=== PATIENT | male | born 1985 | race American Indian/Alaskan Native ===

== ENCOUNTER 2020-10-01 08:32 | Inpatient (IN) | payer SELFPAY ==
[2020-10-01] MEDS ORDERED: hydrALAZINE 20 MG/1 ML INJ IV ONE ×2 (08:56→23:45)
[2020-10-01] MEDS ORDERED: LORazepam 1 MG TAB PO ONE (08:56)
[2020-10-01] MEDS ORDERED: FUROSEMIDE 40 MG/4 ML INJ IV ONE (08:56)
[2020-10-01] MEDS ORDERED: NITROGLYCERIN 2% OINT 1 GM TP ONE (08:57)
--- NOTE | 2020-10-01 09:30 | XRay Report ---
XR chest 1V ap INDICATION / CLINICAL INFORMATION: resp distress. COMPARISON: None available. FINDINGS: SUPPORT DEVICES: None. HEART /PULMONARY VASCULATURE: Cardiac silhouette is enlarged with prominence of the pulmonary vascula ture. LUNGS / PLEURA: Patchy airspace opacity within the right mid and lower lung. No pleural effusion or p neumothorax. ADDITIONAL FINDINGS: No significant additional findings. IMPRESSION: Right mid and lower lung airspace disease, suspicious for pneumonia. This could also reflect asymmetr ic pulmonary edema. Signer Name: Sourav Sotelo MD Signed: 10/01/2020 9:26 AM Workstation Name: [id number]
[2020-10-01 09:40] LABS: Hematocrit 34.7 % (35.5-45.6); Hemoglobin 11.8 gm/dl (11.8-15.2); Mean Corpuscular HGB Conc 34 % (32-34); Mean Corpuscular Volume 87 fl (84-94); Platelet Count 347 K/mm3 (140-440); Red Blood Count 4.01 M/mm3 (3.65-5.03); Red Cell Distribution Width 15.1 % (13.2-15.2)
[2020-10-01] MEDS ORDERED: ONDANSETRON 4 MG/2 ML INJ ONE (09:49)
[2020-10-01] MEDS ORDERED: ONDANSETRON 4 MG/2 ML INJ IV ONE (09:53)
[2020-10-01] MEDS ORDERED: INSULIN REGULAR, HUMAN 100 UNITS/1 ML ONE (10:00)
[2020-10-01] MEDS ORDERED: NITROGLYCERIN DRIP 50 MG/250 ML BOTTLE IV SCH (10:00)
[2020-10-01] MEDS ORDERED: LORazepam 2 MG/ML VIAL IV ONE ×2 (10:04→17:53)
[2020-10-01] MEDS ORDERED: ALBUTEROL 2.5 MG/3 ML NEBU IH ONE (10:05)
[2020-10-01] MEDS ORDERED: SODIUM BICARB 8.4% 50 MEQ/50 ML SYRINGE IV ONE (10:05)
[2020-10-01] MEDS ORDERED: DEXTROSE 50% IN WATER (25GM) 50 ML SYRINGE IV ONE (10:05)
[2020-10-01] MEDS ORDERED: INSULIN REGULAR, HUMAN 100 UNIT/ML 3ML VIAL IV ONE (10:05)
[2020-10-01] MEDS ORDERED: HYDROmorphone 1 MG/1 ML INJ IV ONE (10:37)
[2020-10-01 10:40] LABS: Basophils % (Manual) 0 % (0.0-1.8); Monocytes % (Manual) 0 % (0.0-7.3); Total Cells Counted 100
[2020-10-01 10:42] LABS: Platelet Estimate Consistent w Auto; Schistocytes Few
--- NOTE | 2020-10-01 10:46 | Emergency Department Report ---
ED General Adult HPI - General Chief complaint: Dyspnea/Respdistress Stated complaint: DIALYSIS Time Seen by Provider: 10/01/20 08:50 Source: EMS Mode of arrival: Ambulatory Limitations: No Limitations - History of Present Illness Initial comments: Patient is a 35-year-old F [place] male with past medical history of hypertension end-stage renal disease who missed dialysis due to the holiday schedule. Patient's last dialysis was 4 days ago. Patient states over the last 24 hours she has developed shortness of breath nausea. Patient states that is very uncomfortable with his breathing. He denies any fevers chills body aches or diarrhea at this time. Severity scale (0 -10): 2 - Related Data Allergies Allergy/AdvReac Type Severity Reaction Status Date / Time No Known Allergies Allergy Unverified 10/01/20 09:57 ED Review of Systems ROS: Stated complaint: DIALYSIS Other details as noted in HPI Comment: All other systems reviewed and negative ED Past Medical Hx - Past Medical History Previous Medical History?: Yes Hx Hypertension: Yes Hx Renal Disease: Yes - Surgical History Past Surgical History?: Yes Additional Surgical History: shunt left arm - Social History Smoking Status: Never Smoker ED Physical Exam - General Limitations: No Limitations General appearance: alert, in no apparent distress - Head Head exam: Present: atraumatic, normocephalic - Eye Eye exam: Present: normal appearance, PERRL, EOMI - ENT ENT exam: Present: mucous membranes moist - Neck Neck exam: Present: normal inspection - Respiratory Respiratory exam: Present: respiratory distress, wheezes, rhonchi. Absent: normal lung sounds bilaterally - Cardiovascular Cardiovascular Exam: Present: regular rate, normal rhythm, normal heart sounds. Absent: systolic murmur, diastolic murmur, rubs, gallop - GI/Abdominal GI/Abdominal exam: Present: soft, normal bowel sounds. Absent: distended, tenderness, guarding, rebound - Rectal Rectal exam: Present: deferred - Extremities Exam Extremities exam: Present: normal inspection - Back Exam Back exam: Present: normal inspection - Neurological Exam Neurological exam: Present: alert, oriented X3 - Psychiatric Psychiatric exam: Present: normal affect, normal mood - Skin Skin exam: Present: warm, dry, intact, normal color. Absent: rash ED Course Vital Signs 10/01/20 10/01/20 10/01/20 08:49 10:04 10:07 Temperature 98.1 F Pulse Rate 86 98 H Pulse Rate [ Bilateral] Respiratory 29 H 40 H 18 Rate Respiratory Rate [Bilateral ] Blood Pressure 225/129 225/129 Blood Pressure 225/129 [Right] O2 Sat by Pulse 95 94 96 Oximetry 10/01/20 10:21 Temperature Pulse Rate Pulse Rate [ 94 H Bilateral] Respiratory Rate Respiratory 28 H Rate [Bilateral ] Blood Pressure Blood Pressure [Right] O2 Sat by Pulse Oximetry ED Medical Decision Making - Lab Data Result diagrams: 10/01/20 09:01 10/01/20 09:01 Lab Results 10/01/20 10/01/20 Range/Units 09:01 09:01 WBC 13.5 H (4.5-11.0) K/mm3 RBC 4.01 (3.65-5.03) M/mm3 Hgb 11.8 (11.8-15.2) gm/dl Hct 34.7 L (35.5-45.6) % MCV 87 (84-94) fl MCH 30 (28-32) pg MCHC 34 (32-34) % RDW 15.1 (13.2-15.2) % Plt Count 347 (140-440) K/mm3 Add Manual Diff Complete Total Counted 100 Seg Neutrophils % Ultrasound Coordinator Seg Neuts % (Manual) 93.0 H (40.0-70.0) % Band Neutrophils % 0 % Lymphocytes % (Manual) 6.0 L (13.4-35.0) % Reactive Lymphs % (Man) 0 % Monocytes % (Manual) 0 (0.0-7.3) % Eosinophils % (Manual) 1.0 (0.0-4.3) % Basophils % (Manual) 0 (0.0-1.8) % Metamyelocytes % 0 % Myelocytes % 0 % Promyelocytes % 0 % Blast Cells % 0 % Nucleated RBC % Not Reportable Seg Neutrophils # Man 12.6 H (1.8-7.7) K/mm3 Band Neutrophils # 0.0 K/mm3 Lymphocytes # (Manual) 0.8 L (1.2-5.4) K/mm3 Abs React Lymphs (Man) 0.0 K/mm3 Monocytes # (Manual) 0.0 (0.0-0.8) K/mm3 Eosinophils # (Manual) 0.1 (0.0-0.4) K/mm3 Basophils # (Manual) 0.0 (0.0-0.1) K/mm3 Metamyelocytes # 0.0 K/mm3 Myelocytes # 0.0 K/mm3 Promyelocytes # 0.0 K/mm3 Blast Cells # 0.0 K/mm3 WBC Morphology Not Reportable Hypersegmented Neuts Not Reportable Hyposegmented Neuts Not Reportable Hypogranular Neuts Not Reportable Smudge Cells Not Reportable Toxic Granulation Not Reportable Toxic Vacuolation Not Reportable Dohle Bodies Not Reportable Pelger-Huet Anomaly Not Reportable Jayesh Rods Not Reportable Platelet Estimate Consistent w auto Clumped Platelets Not Reportable Plt Clumps, EDTA Not Reportable Large Platelets Not Reportable Giant Platelets Not Reportable Platelet Satelliting Not Reportable Plt Morphology Comment Not Reportable RBC Morphology Not Reportable Dimorphic RBCs Not Reportable Polychromasia Not Reportable Hypochromasia Not Reportable Poikilocytosis Not Reportable Anisocytosis Not Reportable Microcytosis Not Reportable Macrocytosis Not Reportable Spherocytes Not Reportable Pappenheimer Bodies Not Reportable Sickle Cells Not Reportable Target Cells Not Reportable Tear Drop Cells Not Reportable Ovalocytes Not Reportable Helmet Cells Not Reportable [place] Bodies Not Reportable [place] Rings Not Reportable [place] Cells Not Reportable Bite Cells Not Reportable Crenated Cell Not Reportable Elliptocytes Few Acanthocytes (Spur) Not Reportable Rouleaux Not Reportable Hemoglobin C Crystals Not Reportable Schistocytes Few Malaria parasites Not Reportable Giovanni Bodies Not Reportable Hem Pathologist Commnt No Sodium 137 (137-145) mmol/L Potassium 5.9 H (3.6-5.0) mmol/L Chloride 94.3 L (98-107) mmol/L Carbon Dioxide 18 L (22-30) mmol/L Anion Gap 31 mmol/L BUN 126 H (9-20) mg/dL Creatinine 22.1 H (0.8-1.3) mg/dL Estimated GFR 2 ml/min BUN/Creatinine Ratio 6 % Glucose 90 (75-100) mg/dL Calcium 9.0 (8.4-10.2) mg/dL - Radiology Data CXR shows pulmonary edema bilateral lower lobes. - Medical Decision Making Patient is a 35-year-old -[place] male with a past medical history of missed dialysis who is presenting with respiratory distress. Patient while sitting completely still was able to maintain his O2 saturation in the mid 90s however with any movement patient would desaturate. Patient's lowest O2 sat was 80%. Patient was placed on BiPAP. Patient was given labetalol for blood pressure control started on nitroglycerin drip for preload reduction. Nephrology has been consulted and and will dialyze the patient. Patient was given a cocktail of D50 insulin and albuterol and sodium bicarb for his elevated potassium. Patient to be admitted to the hospitalist service to the ICU. Critical Care Time: Yes (30) Critical care attestation.: If time is entered above; I have spent that time in minutes in the direct care of this critically ill patient, excluding procedure time. ED Disposition Clinical Impression: Respiratory distress, Pulmonary edema, Hyperkalemia, Missed dialysis, Hypoxia Disposition: OP ADMIT IP TO THIS HOSP Is pt being admited?: Yes Does the pt Need Aspirin: No Condition: Stable Instructions: Pulmonary Edema (ED) Time of Disposition: 10:50
--- NOTE | 2020-10-01 11:14 | History and Physical Report ---
History of Present Illness Chief complaint: I need dialysis History of present illness: 35 YO Male with ESRD on HD(M,W,F) and has missed multiple dialysis sessions, HTN presents to ED for evaluation. Patient is lying in bed with noninvasive positive pressure ventilation in place at the time my evaluation and provide l imited history. Patient reports missing multiple dialysis sessions and is unable to speak in complete sentences due to shortness of breath. EMS was notified due to the aforementioned symptoms and upon arrival the patient was found to be in respiratory distress and placed on submental oxygen and tr ansported to [facility] for further care and evaluation of the aforementioned symptoms. The patient was seen and evaluated in the emergency department. All lab and imaging studies reviewed. The patient was found to have end-stage renal disease in need of urgent dialysis. Nephrology team consulted in ED for urgent dialysis. Patient also found to have a pulse oximetry of 86% on room air which is consistent with acute hypoxemic respiratory failure, systemic febrile response syndrome, as well as most malignant hypertension. Patient found to have a blood pressure of 225/129 and was initiated on nitro drip with improvement in blood pressure. Patient admitted to IMCU due to increased risk of multiple organ system failure. Patient is confused and lethargic at the time of my evaluation but has a positive gag reflex and is able to protect his airway without difficulty. No prior admission for review. No medication listed at time of admission for reconciliation. Past History Past Medical History: ESRD, hypertension, other (See HPI) Past Surgical History: Other (Dialysis access) Social history: single. denies: smoking, alcohol abuse, prescription drug abuse Family history: hypertension Medications and Allergies Allergies Allergy/AdvReac Type Severity Reaction Status Date / Time No Known Allergies Allergy Unverified 10/01/20 09:57 Active Meds: Active Medications Nitroglycerin/Dextrose (Tridil Drip 50mg/250ml) 50 mg in 250 mls @ 3 mls/hr IV TITR REBA; Protocol Last Titration: 10/01/20 11:10 Dose: 3 mcg/min, 0.9 mls/hr Documented by: Review of Systems ROS unobtainable: due to mental status Exam - Constitutional Vitals: Temp Pulse Resp BP Pulse Ox 98.1 F 86 18 142/100 96 10/01/20 08:49 10/01/20 10:48 10/01/20 10:47 10/01/20 10:48 10/01/20 10:07 General appearance: Present: mild distress - EENT Eyes: Present: PERRL ENT: hearing intact, clear oral mucosa - Neck Neck: Present: supple, normal ROM - Respiratory Respiratory effort: normal Respiratory: bilateral: diminished, rhonchi - Cardiovascular Heart Sounds: Present: S1 & S2. Absent: rub, click - Extremities Extremities: pulses symmetrical Extremity abnormal: edema Peripheral Pulses: within normal limits - Abdominal General gastrointestinal: Present: soft, non-tender, non-distended, normal bowel sounds Male genitourinary: Present: normal - Integumentary Integumentary: Present: clear, warm, dry - Musculoskeletal Musculoskeletal: generalized weakness - Psychiatric Psychiatric: appropriate mood/affect, no intact judgment & insight, no memory intact - Neurologic Neurologic: CNII-XII intact, moves all extremities, no gait normal Results - Labs CBC & Chem 7: 10/01/20 09:01 10/01/20 09:01 Labs: Abnormal lab results 10/01/20 10/01/20 Range/Units 09:01 09:01 WBC 13.5 H (4.5-11.0) K/mm3 Hct 34.7 L (35.5-45.6) % Seg Neuts % (Manual) 93.0 H (40.0-70.0) % Lymphocytes % (Manual) 6.0 L (13.4-35.0) % Seg Neutrophils # Man 12.6 H (1.8-7.7) K/mm3 Lymphocytes # (Manual) 0.8 L (1.2-5.4) K/mm3 Potassium 5.9 H (3.6-5.0) mmol/L Chloride 94.3 L (98-107) mmol/L Carbon Dioxide 18 L (22-30) mmol/L BUN 126 H (9-20) mg/dL Creatinine 22.1 H (0.8-1.3) mg/dL Assessment and Plan - Patient Problems (1) Acute hypoxemic respiratory failure Current Visit: Yes Status: Acute Plan to address problem: Supplemental oxygen, pulse oximetry, nebulizer therapy, noninvasive positive pressure ventilation, ABG, repeat ABG after 1 hour of noninvasive positive pressure ventilation, pulmonary toilet. (2) End stage renal disease Current Visit: Yes Status: Acute Plan to address problem: Nephrology team consulted in ED for urgent dialysis, strict I's/O, monitor urine output every shift, avoid nephrotoxic agents. (3) Hypertensive emergency Current Visit: Yes Status: Acute Plan to address problem: Blood pressure control, nitro drip patient subsequently discontinued and ini tiated on Cardene drip, urine drug screen pending., resume prehospital antihypertensive therapy, monitor blood pressure every shift. Urgent dialysis. (4) Systemic inflammatory response syndrome Current Visit: Yes Status: Acute Plan to address problem: CBC, CMP, chest x-ray, urinalysis, empiric IV antibiotic therapy, repeat CBC in a.m. (5) DVT prophylaxis Current Visit: Yes Status: Acute Plan to address problem: SCD to bilateral lower extremities while in bed, prophylactic anticoagulation
[2020-10-01] MEDS ORDERED: SODIUM CHLORIDE 0.9% 100 ML IV PRN (12:00)
[2020-10-01 12:34] LABS: Hepatitis B Surface Antigen Non-Reactive (Negative); Hepatitis C Virus Antibody Non-Reactive (NonReactive)
--- NOTE | 2020-10-01 15:28 | Progress Note ---
Subjective Interval history: Thank you for the consultation Patient was evaluated today, 11 a.m. My assessment and plan are as follows #End-stage renal disease: Patient is currently on maintenance hemodialysis and he is any emergent need for renal placement therapy due to respiratory failure currently on BiPAP discussed with dialysis nurse for stat hemodialysis, targeting up to 3 L of fluid as tolerated #Respiratory failure resulting mostly from volume overload, Patient is unable to provide much of history as he is markedly dyspneic even on BiPAP #Electrolyte and volume: To monitor and follow Appears to be volume overloaded patient admits, being not careful with his fluid intake during the holidays #Dialysis Access: Working well no issues per patient He does have a functioning access in his left arm #Anemia in end-stage renal disease to monitor hemoglobin and hematocrit periodically erythropoietin as needed, #of blood pressure remains elevated post dialysis he can be considered for Cardene drip in the meantime he can receive when necessary medications #Bone mineral disorder and secondary hyperparathyroidism: Monitor phosphorus and PTH level periodically, #Diet and nutrition: Patient advised to maintain 1200 cc fluid restriction needs to be on protein: 1.5 g/kg body weight daily, supplement should be considered Briefly discussed about compliance restricting fluid #Overall prognosis remains guarded possibly he may get intubated, due to severity of renal failure I have ordered for stat hemodialysis and discussed with dialysis nurse directly to dialyze him right away If there are any further question in regard to this patient's renal care please call at [phone] Author: Gadiel Sharpe M.D. [facility], [address] [place] [address] Tel; [phone] Source of information: From emergency room physician current chart patient unable to provide any history History of present illness 35-year-old male who was admitted here with shortness of breath after missing dialysis, he was last dialyzed approximate he 4 days ago. He is presenting here with severe shortness of breath currently on BiPAP, markedly accelerated hypertension to 25/129 hemoglobin was 11.8, white cell count 13.5 platelet count 3 and 47,000. Potassium was 5.9 BUN 126 creatinine was 22.1 Past medical history: ESRD Hypertension Anemia in end-stage renal disease Secondary hyperparathyroidism Current allergies: Reviewed from the current chart Social history: Reviewed from the current chart Family history: Reviewed from the current chart Review of system: Unable to obtain due to respiratory failure patient markedly dyspneic currently on BiPAP Physical examination Vitals: Reviewed General: Mild to moderate respiratory distress HEENT: Oral mucosa moist no pallor or icterus Neck: Supple without any JVD thyromegaly or nodular mass Chest: Bilateral crackles Heart: Regular rate and rhythm S1-S2 heard no S3-S4 Abdomen: Soft nontender, bowel sounds present no renal bruit no suprapubic masses no CVA tenderness noted Extremity: 1+ edema has functioning fistula Endocrine: Thyroid not enlarged Psychiatric: No agitation and aggression noted Musculoskeletal: No joint effusion noted Labs and x-rays: Reviewed from this admission Objective - Vital Signs Vital signs: Vital Signs - 12hr 10/01/20 10/01/20 10/01/20 08:45 08:49 09:00 Temperature 98.1 F Pulse Rate 88 86 87 Pulse Rate [ Bilateral] Respiratory 27 H 29 H 44 H Rate Respiratory Rate [Bilateral ] Blood Pressure 225/129 225/129 Blood Pressure 225/129 [Right] O2 Sat by Pulse 96 95 95 Oximetry O2 Sat by Pulse Oximetry [ Bilateral] 10/01/20 10/01/20 10/01/20 09:16 09:30 09:46 Temperature Pulse Rate 87 89 90 Pulse Rate [ Bilateral] Respiratory 28 H 28 H 27 H Rate Respiratory Rate [Bilateral ] Blood Pressure 225/129 225/129 225/129 Blood Pressure [Right] O2 Sat by Pulse 96 94 91 Oximetry O2 Sat by Pulse Oximetry [ Bilateral] 10/01/20 10/01/20 10/01/20 10:00 10:04 10:07 Temperature Pulse Rate 87 98 H Pulse Rate [ Bilateral] Respiratory 38 H 40 H 18 Rate Respiratory Rate [Bilateral ] Blood Pressure 217/121 225/129 Blood Pressure [Right] O2 Sat by Pulse 97 94 96 Oximetry O2 Sat by Pulse Oximetry [ Bilateral] 10/01/20 10/01/20 10/01/20 10:16 10:21 10:30 Temperature Pulse Rate 92 H 93 H Pulse Rate [ 94 H Bilateral] Respiratory 42 H 49 H Rate Respiratory 28 H Rate [Bilateral ] Blood Pressure 228/134 227/155 Blood Pressure [Right] O2 Sat by Pulse 95 97 Oximetry O2 Sat by Pulse Oximetry [ Bilateral] 10/01/20 10/01/20 10/01/20 10:46 10:47 10:48 Temperature Pulse Rate 86 Pulse Rate [ Bilateral] Respiratory 49 H 18 Rate Respiratory Rate [Bilateral ] Blood Pressure 223/150 142/100 Blood Pressure [Right] O2 Sat by Pulse 99 Oximetry O2 Sat by Pulse Oximetry [ Bilateral] 10/01/20 10/01/20 10/01/20 11:00 11:16 11:25 Temperature 98.1 F Pulse Rate 85 80 83 Pulse Rate [ Bilateral] Respiratory 42 H 30 H 30 H Rate Respiratory Rate [Bilateral ] Blood Pressure 239/143 206/122 206/122 Blood Pressure [Right] O2 Sat by Pulse 97 98 Oximetry O2 Sat by Pulse 100 Oximetry [ Bilateral] 10/01/20 10/01/20 10/01/20 11:30 11:45 12:00 Temperature Pulse Rate 82 76 75 Pulse Rate [ Bilateral] Respiratory 39 H 33 H 30 H Rate Respiratory Rate [Bilateral ] Blood Pressure 205/130 198/132 198/132 Blood Pressure [Right] O2 Sat by Pulse 96 94 94 Oximetry O2 Sat by Pulse Oximetry [ Bilateral] 10/01/20 10/01/20 10/01/20 12:15 12:30 12:45 Temperature Pulse Rate 74 76 75 Pulse Rate [ Bilateral] Respiratory 33 H 33 H 34 H Rate Respiratory Rate [Bilateral ] Blood Pressure 191/119 191/119 196/123 Blood Pressure [Right] O2 Sat by Pulse 93 93 94 Oximetry O2 Sat by Pulse Oximetry [ Bilateral] 10/01/20 10/01/20 10/01/20 13:00 13:15 13:30 Temperature Pulse Rate 76 74 74 Pulse Rate [ Bilateral] Respiratory 35 H 35 H 37 H Rate Respiratory Rate [Bilateral ] Blood Pressure 202/126 214/128 214/128 Blood Pressure [Right] O2 Sat by Pulse 95 95 97 Oximetry O2 Sat by Pulse Oximetry [ Bilateral] 10/01/20 10/01/20 10/01/20 13:45 14:00 14:15 Temperature Pulse Rate 75 80 79 Pulse Rate [ Bilateral] Respiratory 36 H 40 H 35 H Rate Respiratory Rate [Bilateral ] Blood Pressure 220/135 220/135 220/149 Blood Pressure [Right] O2 Sat by Pulse 95 100 98 Oximetry O2 Sat by Pulse Oximetry [ Bilateral] 10/01/20 10/01/20 10/01/20 14:30 14:45 15:00 Temperature Pulse Rate 70 71 68 Pulse Rate [ Bilateral] Respiratory Rate Respiratory Rate [Bilateral ] Blood Pressure 223/136 230/142 238/147 Blood Pressure [Right] O2 Sat by Pulse Oximetry O2 Sat by Pulse Oximetry [ Bilateral] - Lab 10/01/20 09:01 10/01/20 09:01 Most recent lab results Calcium 9.0 mg/dL (8.4-10.2) 10/01/20 09:01 Medications & Allergies - Medications Allergies/Adverse Reactions: Allergies No Known Allergies Allergy (Unverified 10/01/20 09:57) Active Medications: Generic Name Dose Route Start Last Admin Trade Name Freq PRN Reason Stop Dose Admin Nitroglycerin/Dextrose 50 mg in 250 mls @ 3 mls/hr 10/01/20 10:00 10/01/20 11:10 Tridil Drip 50mg/250ml IV 3 mcg/min TITR REBA 0.9 mls/hr Titration Protocol 10 MCG/MIN Sodium Chloride 100 mls @ 999 mls/hr 10/01/20 12:00 Nacl 0.9% IV LUCIE PRN Hypotension
[2020-10-01 15:47] LABS: ABG Base Excess 0.7 mmol/L (-2.0-3.0); ABG HCO3 25.9 mmol/L (20.0-26.0); ABG Methemoglobin 0.5 % (0.0-1.5); ABG PCO2 43.4 mm Hg; ABG PH 7.393 pH Units (7.350-7.450); ABG PO2 110.7 mm Hg (80.0-90.0)
[2020-10-01] MEDS ORDERED: niCARdipine DRIP 40 MG/200 ML BAG ONE (16:52)
[2020-10-01] MEDS ORDERED: niCARdipine DRIP 40 MG/200 ML BAG IV ONE (17:00)
[2020-10-01 17:03] LABS: Calcium 9.5 mg/dL (8.4-10.2)
[2020-10-01] MEDS ORDERED: HYDROmorphone 1 MG/1 ML INJ ONE (17:18)
[2020-10-01] MEDS ORDERED: LORazepam 2 MG/ML VIAL ONE (17:52)
[2020-10-01] MEDS ORDERED: HEPARIN 5,000 UNIT/1 ML VIAL SUB-Q SCH (22:00)
[2020-10-01] MEDS ORDERED: cloNIDine 0.1 MG TAB PO ONE (22:00)
[2020-10-01 22:23] LABS: Benzodiazepines Screen,Urine Negative; Cocaine Screen,Urine Negative; Methadone Screen,Urine Negative; Opiate Screen,Urine Negative
[2020-10-01 22:35] LABS: Amphetamine Screen,Urine Positive; Cannabinoid Screen,Urine Positive
[2020-10-01] MEDS: niCARdipine 50 MG in SODIUM CHLORIDE 0.9% 250ML 230 ML IV SCH (23:18)
[2020-10-01] MEDS ORDERED: ZOLPIDEM 5 MG TAB PO ONE (23:45)
[2020-10-02] MEDS: niCARdipine 50 MG in SODIUM CHLORIDE 0.9% 250ML 230 ML IV SCH ×3 (02:57→08:05)
[2020-10-02] MEDS ORDERED: cloNIDine 0.1 MG TAB ONE (03:23)
--- NOTE | 2020-10-02 09:37 | Progress Note ---
<SORAYA MARTÍNEZ - Last Filed: 10/02/20 14:33> Assessment and Plan - Patient Problems (1) Acute hypoxemic respiratory failure-has resolved Current Visit: Yes Status: Acute Plan to address problem: Seen on room air (2) End stage renal disease Current Visit: Yes Status: Acute Plan to address problem: Nephrology following Continue HD per renal recommendation Avoid nephrotoxic agent. (3) Hypertensive emergency Current Visit: Yes Status: Acute Plan to address problem: Monitor Blood pressure Started home bp med-his blood pressure normal Discontinued Cardene drip, urine drug screen positive for amphetamines and marijuana Discussed illicit drug use cessation (4) Systemic inflammatory response syndrome Current Visit: Yes Status: Acute Plan to address problem: leucocytosis -elevated WBC Continue empiric antibiotic Am lab CBC, CMP, chest x-ray, urinalysis (5) DVT prophylaxis Current Visit: Yes Status: Acute Plan to address problem: SCD to bilateral lower extremities while in bed, prophylactic anticoagulation - Patient Problems (3) Pulmonary edema Status: Acute Plan to address problem: Most likely 2/2 fluid overload/PNA infection Continue Hemodialysis per renal Patient seen on room air-he said he is feeling better Subjective Date of service: 10/02/20 Principal diagnosis: Fluid overload/acute respiratory failure with hypoxia/ESRD Interval history: Patient seen at bedside-on room air. Patient said he feels better and ready to go home Discussed medication and HD treatment compliance-patient voiced understanding Also dicussed with the patient possible compliacation of illicit drug use. Patient is ESRD patient, elevated bp level Re-started her home bp med-blood pressure is stable and antihypertensive drip discontinued Will discharge patient post hemodialysis today Objective - Constitutional Vitals: Vital Signs - 12hr 10/01/20 10/01/20 10/01/20 21:38 21:40 21:50 Temperature Pulse Rate 99 H 104 H Pulse Rate [ Left Radial] Respiratory 26 H 19 29 H Rate Blood Pressure 202/119 202/119 O2 Sat by Pulse 99 100 96 Oximetry 10/01/20 10/01/20 10/01/20 22:00 22:10 22:20 Temperature Pulse Rate 93 H 94 H 94 H Pulse Rate [ Left Radial] Respiratory 31 H 16 16 Rate Blood Pressure 236/106 241/111 239/116 O2 Sat by Pulse 100 100 100 Oximetry 10/01/20 10/01/20 10/01/20 22:30 22:40 22:50 Temperature Pulse Rate 100 H 96 H 100 H Pulse Rate [ Left Radial] Respiratory 10 L 18 17 Rate Blood Pressure 239/116 217/124 221/105 O2 Sat by Pulse 100 100 99 Oximetry 10/01/20 10/01/20 10/01/20 23:00 23:10 23:11 Temperature 98.9 F Pulse Rate 98 H 96 H Pulse Rate [ Left Radial] Respiratory 16 35 H Rate Blood Pressure 221/105 235/90 O2 Sat by Pulse 97 97 Oximetry 10/01/20 10/01/20 10/01/20 23:20 23:27 23:30 Temperature Pulse Rate 94 H 99 H 99 H Pulse Rate [ Left Radial] Respiratory 33 H 36 H 15 Rate Blood Pressure 238/108 238/108 238/108 O2 Sat by Pulse 98 92 98 Oximetry 10/01/20 10/01/20 10/01/20 23:33 23:40 23:50 Temperature Pulse Rate 100 H 101 H 104 H Pulse Rate [ Left Radial] Respiratory 28 H 36 H 34 H Rate Blood Pressure 216/95 216/95 200/87 O2 Sat by Pulse 94 93 95 Oximetry 10/01/20 10/02/20 10/02/20 23:53 00:00 00:08 Temperature Pulse Rate 94 H 100 H 99 H Pulse Rate [ Left Radial] Respiratory 31 H 30 H Rate Blood Pressure 200/87 200/87 207/95 O2 Sat by Pulse 100 99 Oximetry 10/02/20 10/02/20 10/02/20 00:15 00:16 00:30 Temperature Pulse Rate 94 H 95 H 96 H Pulse Rate [ 94 H Left Radial] Respiratory 29 H 28 H Rate Blood Pressure 184/78 184/78 O2 Sat by Pulse 99 99 Oximetry 10/02/20 10/02/20 10/02/20 00:45 01:00 01:15 Temperature Pulse Rate 96 H 96 H 101 H Pulse Rate [ Left Radial] Respiratory 29 H 28 H 28 H Rate Blood Pressure 173/71 173/71 170/88 O2 Sat by Pulse 99 99 99 Oximetry 10/02/20 10/02/20 10/02/20 01:30 01:45 02:00 Temperature Pulse Rate 100 H 98 H 99 H Pulse Rate [ Left Radial] Respiratory 29 H 30 H 29 H Rate Blood Pressure 177/84 179/78 186/77 O2 Sat by Pulse 100 99 99 Oximetry 10/02/20 10/02/20 10/02/20 02:15 02:30 02:45 Temperature Pulse Rate 100 H 105 H 97 H Pulse Rate [ Left Radial] Respiratory 31 H 37 H 38 H Rate Blood Pressure 192/84 192/84 219/94 O2 Sat by Pulse 99 99 100 Oximetry 10/02/20 10/02/20 10/02/20 03:00 03:15 03:26 Temperature Pulse Rate 94 H 103 H 97 H Pulse Rate [ Left Radial] Respiratory 36 H 30 H Rate Blood Pressure 219/94 227/101 227/101 O2 Sat by Pulse 100 100 Oximetry 10/02/20 10/02/20 10/02/20 03:30 03:46 04:00 Temperature 98.3 F Pulse Rate 97 H 108 H 100 H Pulse Rate [ 102 H Left Radial] Respiratory 17 28 H 19 Rate Blood Pressure 227/101 201/79 201/79 O2 Sat by Pulse 100 32 L Oximetry 10/02/20 10/02/20 10/02/20 04:16 04:30 04:46 Temperature Pulse Rate 99 H 95 H 98 H Pulse Rate [ Left Radial] Respiratory 15 22 32 H Rate Blood Pressure 206/97 206/97 198/86 O2 Sat by Pulse Oximetry 10/02/20 10/02/20 10/02/20 05:00 05:16 05:30 Temperature Pulse Rate 97 H 96 H 99 H Pulse Rate [ Left Radial] Respiratory 27 H 30 H 33 H Rate Blood Pressure 221/93 195/88 195/88 O2 Sat by Pulse Oximetry 10/02/20 10/02/20 10/02/20 05:45 06:00 06:16 Temperature Pulse Rate 100 H 96 H 101 H Pulse Rate [ Left Radial] Respiratory 35 H 24 39 H Rate Blood Pressure 207/92 205/93 209/95 O2 Sat by Pulse 98 96 Oximetry 10/02/20 10/02/20 10/02/20 06:30 06:46 07:46 Temperature Pulse Rate 103 H 95 H Pulse Rate [ Left Radial] Respiratory 35 H 35 H Rate Blood Pressure 209/95 205/79 O2 Sat by Pulse 99 97 99 Oximetry 10/02/20 08:57 Temperature 99.6 F Pulse Rate Pulse Rate [ Left Radial] Respiratory Rate Blood Pressure O2 Sat by Pulse Oximetry General appearance: Present: no acute distress - EENT Eyes: PERRL, EOM intact ENT: hearing intact, clear oral mucosa Ears: bilateral: normal - Neck Neck: supple, normal ROM - Respiratory Respiratory effort: accessory muscle use Respiratory: bilateral: diminished - Breasts Breasts: normal - Cardiovascular Rhythm: regular Heart Sounds: Present: S1 & S2. Absent: gallop, rub Extremities: pulses intact, No edema, normal color, Full ROM - Gastrointestinal General gastrointestinal: Present: soft, non-tender, non-distended, normal bowel sounds - Genitourinary Male genitourinary: normal - Integumentary Integumentary: clear, warm, dry - Musculoskeletal Musculoskeletal: 1, strength equal bilaterally - Neurologic Neurologic: moves all extremities - Psychiatric Psychiatric: appropriate mood/affect, intact judgment & insight, cooperative - Allied health notes Allied health notes reviewed: nursing - Labs CBC & Chem 7: 10/02/20 10:31 10/02/20 10:31 Labs: Abnormal lab results 10/01/20 10/01/20 10/01/20 Range/Units 09:01 09:01 15:38 WBC 13.5 H (4.5-11.0) K/mm3 Hct 34.7 L (35.5-45.6) % Seg Neuts % (Manual) 93.0 H (40.0-70.0) % Lymphocytes % (Manual) 6.0 L (13.4-35.0) % Seg Neutrophils # Man 12.6 H (1.8-7.7) K/mm3 Lymphocytes # (Manual) 0.8 L (1.2-5.4) K/mm3 ABG pO2 110.7 H (80.0-90.0) mm Hg ABG Hemoglobin 12.4 L (14.0-18.0) gm/dl Potassium 5.9 H (3.6-5.0) mmol/L Chloride 94.3 L (98-107) mmol/L Carbon Dioxide 18 L (22-30) mmol/L BUN 126 H (9-20) mg/dL Creatinine 22.1 H (0.8-1.3) mg/dL 10/01/20 Range/Units 16:20 WBC (4.5-11.0) K/mm3 Hct (35.5-45.6) % Seg Neuts % (Manual) (40.0-70.0) % Lymphocytes % (Manual) (13.4-35.0) % Seg Neutrophils # Man (1.8-7.7) K/mm3 Lymphocytes # (Manual) (1.2-5.4) K/mm3 ABG pO2 (80.0-90.0) mm Hg ABG Hemoglobin (14.0-18.0) gm/dl Potassium (3.6-5.0) mmol/L Chloride 93.4 L (98-107) mmol/L Carbon Dioxide (22-30) mmol/L BUN 65 H (9-20) mg/dL Creatinine 13.3 H (0.8-1.3) mg/dL <EMILY RAMIREZ - Last Filed: 10/03/20 07:16> Assessment and Plan I saw and evaluated the patient. I agree with the findings and the plan of care as documented in the Nurse Practitioner's~note, with the following corrections and additions. Objective - Labs CBC & Chem 7: 10/02/20 10:31 10/02/20 10:31 Labs: Abnormal lab results 10/02/20 10/02/20 Range/Units 10:31 10:31 Hgb 11.2 L (11.8-15.2) gm/dl Hct 33.4 L (35.5-45.6) % Lymph % (Auto) 9.5 L (13.4-35.0) % Lymph # (Auto) 0.9 L (1.2-5.4) K/mm3 Seg Neutrophils % 83.7 H (40.0-70.0) % Seg Neutrophils # 7.8 H (1.8-7.7) K/mm3 Chloride 95.3 L (98-107) mmol/L BUN 79 H (9-20) mg/dL Creatinine 18.4 H (0.8-1.3) mg/dL
[2020-10-02] MEDS ORDERED: ACETAMINOPHEN 325 MG TAB PO PRN (09:46)
[2020-10-02] MEDS ORDERED: cloNIDine 0.2 MG TAB PO SCH (10:00)
[2020-10-02] MEDS ORDERED: amLODIPine 10 MG TAB PO SCH (10:00)
[2020-10-02] MEDS ORDERED: TORSEMIDE 100 MG TAB PO SCH (10:00)
[2020-10-02] MEDS ORDERED: hydroCHLOROthiazide 25 MG TAB PO SCH (10:00)
[2020-10-02] MEDS ORDERED: carvediloL 25 MG TAB PO SCH (10:00)
[2020-10-02] MEDS ORDERED: SPIRONOLACTONE 25 MG TAB PO SCH (10:00)
[2020-10-02 11:08] LABS: Basophils # (Auto) 0.1 K/mm3 (0.0-0.1); Basophils % (Auto) 0.6 % (0.0-1.8); Eosinophils # (Auto) 0.1 K/mm3 (0.0-0.4); Eosinophils % (Auto) 0.8 % (0.0-4.3); Hematocrit 33.4 % (35.5-45.6); Hemoglobin 11.2 gm/dl (11.8-15.2); Lymphocytes # (Auto) 0.9 K/mm3 (1.2-5.4); Lymphocytes % (Auto) 9.5 % (13.4-35.0); Mean Corpuscular HGB Conc 34 % (32-34); Mean Corpuscular Volume 86 fl (84-94); Monocytes # (Auto) 0.5 K/mm3 (0.0-0.8); Monocytes % (Auto) 5.4 % (0.0-7.3); Platelet Count 296 K/mm3 (140-440); Red Blood Count 3.86 M/mm3 (3.65-5.03); Red Cell Distribution Width 14.6 % (13.2-15.2)
[2020-10-02] MEDS ORDERED: SODIUM CHLORIDE 0.9% 100 ML IV PRN (11:40)
--- NOTE | 2020-10-02 11:43 | Progress Note ---
Subjective Principal diagnosis: Fluid overload/acute respiratory failure with hypoxia/ESRD Interval history: Patient was seen today for follow-up of multiple renal related issues, currently on Cardene drip, home medications have not been reconciled discussed with patient's nurse No complaints of any chest pain pressure or shortness of breath, has had hemodialysis treatment yesterday tolerated very well he goes to [facility] under Dr. Butts Interdisciplinary notes that also reviewed Events of 24 hours vitals labs intake output medications were reviewed Past medical history: Reviewed Family history: Reviewed Social history: Reviewed Allergies: Reviewed Physical examination: Vitals: Reviewed HEENT: No pallor or icterus oral mucosa moist Neck: Supple no JVD no thyromegaly Chest: Still has bilateral few basilar crackles Heart: Regular rate and rhythm S1-S2 heard no S3-S4 Abdomen: Soft nontender no voluntary guarding rigidity rebound Extremity: Dry skin less than 1+ peripheral edema Psychiatric: No evidence of agitation and aggression noted Dermatology: No petechial rashes Labs and x-rays: Reviewed from today Assessment and plan #ESRD: Patient noted to be noncompliant amphetamine positive, counseled and educated uncontrolled hypertension slowly improving #Uncontrolled hypertension advised not to do any drugs, take medications regularly sodium control fluid control, home blood pressure needs to be monitored to be kept under 140/80 predialysis under 160 #Will resume some of his home medication discussed with patient's nurse #Today is his regular dialysis day and hence will order for 2 hours of dialysis ultrafiltration as tolerated if doing well post dialysis he can be considered for discharge #Amphetamine use: Counseled and educated also using marijuana not felt to be a suitable candidate with noncompliance and drug abuse patient counseled and educated to improve his behavior and take more responsibility for his health further education from [employer] [facility] websites Patient was adequately counseled and educated regarding all the renal related issues post dialysis if doing well blood pressure is well control he can be considered for discharge Laboratory studies, have been explained to the patient All questions were answered and simple [place] We'll continue to follow and make recommendation for renal standpoint Objective - Vital Signs Vital signs: Vital Signs - 12hr 10/01/20 10/01/20 10/02/20 23:50 23:53 00:00 Temperature Pulse Rate 104 H 94 H 100 H Pulse Rate [ Left Radial] Respiratory 34 H 31 H 30 H Rate Blood Pressure 200/87 200/87 200/87 O2 Sat by Pulse 95 100 99 Oximetry 10/02/20 10/02/20 10/02/20 00:08 00:15 00:16 Temperature Pulse Rate 99 H 94 H 95 H Pulse Rate [ Left Radial] Respiratory 29 H Rate Blood Pressure 207/95 184/78 O2 Sat by Pulse 99 Oximetry 10/02/20 10/02/20 10/02/20 00:30 00:45 01:00 Temperature Pulse Rate 96 H 96 H 96 H Pulse Rate [ 94 H Left Radial] Respiratory 28 H 29 H 28 H Rate Blood Pressure 184/78 173/71 173/71 O2 Sat by Pulse 99 99 99 Oximetry 10/02/20 10/02/20 10/02/20 01:15 01:30 01:45 Temperature Pulse Rate 101 H 100 H 98 H Pulse Rate [ Left Radial] Respiratory 28 H 29 H 30 H Rate Blood Pressure 170/88 177/84 179/78 O2 Sat by Pulse 99 100 99 Oximetry 10/02/20 10/02/20 10/02/20 02:00 02:15 02:30 Temperature Pulse Rate 99 H 100 H 105 H Pulse Rate [ Left Radial] Respiratory 29 H 31 H 37 H Rate Blood Pressure 186/77 192/84 192/84 O2 Sat by Pulse 99 99 99 Oximetry 10/02/20 10/02/20 10/02/20 02:45 03:00 03:15 Temperature Pulse Rate 97 H 94 H 103 H Pulse Rate [ Left Radial] Respiratory 38 H 36 H 30 H Rate Blood Pressure 219/94 219/94 227/101 O2 Sat by Pulse 100 100 100 Oximetry 10/02/20 10/02/20 10/02/20 03:26 03:30 03:46 Temperature Pulse Rate 97 H 97 H 108 H Pulse Rate [ Left Radial] Respiratory 17 28 H Rate Blood Pressure 227/101 227/101 201/79 O2 Sat by Pulse 100 Oximetry 10/02/20 10/02/20 10/02/20 04:00 04:16 04:30 Temperature 98.3 F Pulse Rate 100 H 99 H 95 H Pulse Rate [ 102 H Left Radial] Respiratory 19 15 22 Rate Blood Pressure 201/79 206/97 206/97 O2 Sat by Pulse 32 L Oximetry 10/02/20 10/02/20 10/02/20 04:46 05:00 05:16 Temperature Pulse Rate 98 H 97 H 96 H Pulse Rate [ Left Radial] Respiratory 32 H 27 H 30 H Rate Blood Pressure 198/86 221/93 195/88 O2 Sat by Pulse Oximetry 10/02/20 10/02/20 10/02/20 05:30 05:45 06:00 Temperature Pulse Rate 99 H 100 H 96 H Pulse Rate [ Left Radial] Respiratory 33 H 35 H 24 Rate Blood Pressure 195/88 207/92 205/93 O2 Sat by Pulse 98 Oximetry 10/02/20 10/02/20 10/02/20 06:16 06:30 06:46 Temperature Pulse Rate 101 H 103 H 95 H Pulse Rate [ Left Radial] Respiratory 39 H 35 H 35 H Rate Blood Pressure 209/95 209/95 205/79 O2 Sat by Pulse 96 99 97 Oximetry 10/02/20 10/02/20 10/02/20 07:00 07:16 07:30 Temperature Pulse Rate 97 H 100 H 96 H Pulse Rate [ Left Radial] Respiratory 26 H 18 33 H Rate Blood Pressure 205/79 177/87 177/87 O2 Sat by Pulse 96 98 100 Oximetry 10/02/20 10/02/20 10/02/20 07:46 08:00 08:16 Temperature Pulse Rate 103 H 95 H 97 H Pulse Rate [ Left Radial] Respiratory 21 13 15 Rate Blood Pressure 177/87 177/87 177/87 O2 Sat by Pulse 99 99 100 Oximetry 10/02/20 10/02/20 10/02/20 08:30 08:46 08:57 Temperature 99.6 F Pulse Rate 99 H 98 H Pulse Rate [ Left Radial] Respiratory 25 H 15 Rate Blood Pressure 177/87 177/87 O2 Sat by Pulse 96 98 Oximetry 10/02/20 10/02/20 10/02/20 09:00 09:16 09:30 Temperature Pulse Rate 96 H 98 H 99 H Pulse Rate [ Left Radial] Respiratory 15 27 H 18 Rate Blood Pressure 177/87 184/96 189/98 O2 Sat by Pulse 99 95 95 Oximetry 10/02/20 10/02/20 10/02/20 10:20 10:22 10:25 Temperature Pulse Rate 83 83 83 Pulse Rate [ Left Radial] Respiratory Rate Blood Pressure 190/99 199/99 199/99 O2 Sat by Pulse Oximetry - Lab 10/02/20 10:31 10/02/20 10:31 Most recent lab results ABG pH 7.393 pH Units (7.350-7.450) 10/01/20 15:38 ABG pCO2 43.4 mm Hg 10/01/20 15:38 ABG pO2 110.7 mm Hg (80.0-90.0) H 10/01/20 15:38 ABG HCO3 25.9 mmol/L (20.0-26.0) 10/01/20 15:38 ABG O2 Saturation 98.0 % (95.0-99.0) 10/01/20 15:38 Calcium 9.5 mg/dL (8.4-10.2) 10/01/20 16:20 Medications & Allergies - Medications Allergies/Adverse Reactions: Allergies No Known Allergies Allergy (Unverified 10/01/20 09:57) Home Medications: Home Medications Medication Instructions Recorded Confirmed Last Taken Type Amlodipine Besylate [Norvasc] 10 mg PO DAILY 10/02/20 10/02/20 Unknown History Losartan Potassium 100 mg PO QHS 10/02/20 10/02/20 Unknown History Sevelamer Carbonate [Renvela] 2.4 gm PO TID 10/02/20 10/02/20 Unknown History Spironolactone [Aldactone] 25 mg PO QDAY 10/02/20 10/02/20 Unknown History Torsemide [Demadex] 100 mg PO QDAY 10/02/20 10/02/20 Unknown History carvediloL [Coreg] 25 mg PO BID 10/02/20 10/02/20 Unknown History cloNIDine [Catapres] 0.2 mg PO TID 10/02/20 10/02/20 Unknown History hydroCHLOROthiazide 100 mg PO QAM 10/02/20 10/02/20 Unknown History [Hydrochlorothiazide] Active Medications: Generic Name Dose Route Start Last Admin Trade Name Freq PRN Reason Stop Dose Admin Acetaminophen 650 mg 10/02/20 09:46 10/02/20 10:22 Tylenol PO 650 mg Q6H PRN Administration Pain, Mild (1-3) Amlodipine Besylate 10 mg 10/02/20 10:00 10/02/20 10:20 Amlodipine PO 10 mg QDAY REBA Administration Carvedilol 25 mg 10/02/20 10:00 10/02/20 10:22 Coreg PO 25 mg BID REBA Administration Clonidine HCl 0.2 mg 10/02/20 10:00 10/02/20 10:25 Catapres PO 0.2 mg TID [facility] Administration Heparin Sodium (Porcine) 5,000 unit 10/01/20 22:00 10/01/20 22:39 Heparin SUB-Q 5,000 unit Q12HR REBA Administration Hydrochlorothiazide 100 mg 10/02/20 10:00 10/02/20 10:20 Hctz PO 100 mg QDAY REBA Administration Nitroglycerin/Dextrose 50 mg in 250 mls @ 3 mls/hr 10/01/20 10:00 10/01/20 11:10 Tridil Drip 50mg/250ml IV 30 mcg/min TITR REBA 9 mls/hr Titration Protocol 10 MCG/MIN Sodium Chloride 100 mls @ 999 mls/hr 10/01/20 12:00 Nacl 0.9% IV LUCIE PRN Hypotension Nicardipine HCl 50 mg/ Sodium 250 mls @ 25 mls/hr 10/01/20 23:00 10/02/20 08:05 Chloride IV 5 mg/hr TITR REBA 25 mls/hr Administration Protocol 5 MG/HR Sodium Chloride 100 mls @ 999 mls/hr 10/02/20 11:40 Nacl 0.9% IV LUCIE PRN Hypotension Losartan Potassium 100 mg 10/02/20 22:00 Cozaar PO QHS [facility] Sevelamer Carbonate 2,400 mg 10/02/20 12:00 Renvela PO TID [facility] Spironolactone 25 mg 10/02/20 10:00 10/02/20 10:22 Aldactone PO 25 mg QDAY [facility] Administration Torsemide 100 mg 10/02/20 10:00 Demadex PO DAILY [facility]
[2020-10-02] MEDS ORDERED: SEVELAMER CARBONATE 800 MG TAB PO SCH (12:00)
--- NOTE | 2020-10-02 12:38 | Consultation ---
History of Present Illness Consult date: 10/02/20 Requesting physician: MOISÉS GRESHAM Reason for consult: other (Critical management) History of present illness: 35 YO Male with ESRD on HD(M,W,F) and has missed multiple dialysis sessions, HTN presents to ED for evaluation. Patient is lying in bed with noninvasive positive pressure ventilation in place at the time my evaluation and provide limited history. Patient reports missing multiple dialysis sessions and is unable to speak in complete sentences due to shortness of breath. EMS was notified due to the aforementioned symptoms and upon arrival the patient was found to be in respiratory distress and placed on submental oxygen and transported to [facility] for further care and evaluation of the aforementioned symptoms. The patient was seen and evaluated in the emergency department. All lab and imaging studies reviewed. The patient was found to have end-stage renal disease in need of urgent dialysis. Nephrology team consulted in ED for urgent dialysis. Patient also found to have a pulse oximetry of 86% on room air which is consistent with acute hypoxemic respiratory failure, systemic febrile respon se syndrome, as well as malignant hypertension. Patient found to have a blood pressure of 225/129 and was initiated on nitro drip with improvement in blood pressure. Patient admitted to IMCU due to increased risk of multiple organ system failure. I have been consulted fro critical care management. Thank you Patient seen and examined. Vitals, labs,medications, chart reviewed. On Cardene infusion, s/p 1 session of HD. A session is planned for today. He denies any chest pain, no shortness of breath. States he feels much better. No nausea or vomiting. Past History Past Medical History: ESRD, hypertension, other (See HPI) Past Surgical History: Other (Dialysis access) Social history: single. denies: smoking, alcohol abuse, prescription drug abuse Family history: hypertension Medications and Allergies Allergies Allergy/AdvReac Type Severity Reaction Status Date / Time No Known Allergies Allergy Unverified 10/01/20 09:57 Home Medications Medication Instructions Recorded Confirmed Last Taken Type Amlodipine Besylate [Norvasc] 10 mg PO DAILY 10/02/20 10/02/20 Unknown History Losartan Potassium 100 mg PO QHS 10/02/20 10/02/20 Unknown History Losartan [Cozaar] 100 mg PO QHS 30 Days #30 tablet 10/02/20 Unknown Rx Sevelamer Carbonate [Renvela] 2,400 mg PO TIDWM 30 Days #90 10/02/20 Unknown Rx tablet Sevelamer Carbonate [Renvela] 2.4 gm PO TID 10/02/20 10/02/20 Unknown History Spironolactone [Aldactone] 25 mg PO QDAY 10/02/20 10/02/20 Unknown History Spironolactone [Aldactone] 25 mg PO QDAY 30 Days #30 tablet 10/02/20 Unknown Rx Torsemide [Demadex] 100 mg PO QDAY 10/02/20 10/02/20 Unknown History carvediloL [Coreg] 25 mg PO BID 10/02/20 10/02/20 Unknown History carvediloL [Coreg] 25 mg PO BID 30 Days #60 tablet 10/02/20 Unknown Rx cloNIDine [Catapres] 0.2 mg PO TID 10/02/20 10/02/20 Unknown History cloNIDine [Catapres] 0.2 mg PO TID 30 Days #90 tablet 10/02/20 Unknown Rx hydroCHLOROthiazide 100 mg PO QAM 10/02/20 10/02/20 Unknown History [Hydrochlorothiazide] Active Meds: Active Medications Acetaminophen (Tylenol) 650 mg PO Q6H PRN PRN Reason: Pain, Mild (1-3) Last Admin: 10/02/20 10:22 Dose: 650 mg Documented by: Carvedilol (Coreg) 25 mg PO BID [facility] Last Admin: 10/02/20 10:22 Dose: 25 mg Documented by: Clonidine HCl (Catapres) 0.2 mg PO TID [facility] Last Admin: 10/02/20 10:25 Dose: 0.2 mg Documented by: Heparin Sodium (Porcine) (Heparin) 5,000 unit SUB-Q Q12HR [facility] Last Admin: 10/01/20 22:39 Dose: 5,000 unit Documented by: Nitroglycerin/Dextrose (Tridil Drip 50mg/250ml) 50 mg in 250 mls @ 3 mls/hr IV TITR RE[facility]; Protocol Last Titration: 10/01/20 11:10 Dose: 30 mcg/min, 9 mls/hr Documented by: Nicardipine HCl 50 mg/ Sodium (Chloride) 250 mls @ 25 mls/hr IV TITR [facility]; P rotocol Last Titration: 10/02/20 12:05 Dose: Infused Documented by: Sodium Chloride (Nacl 0.9%) 100 mls @ 999 mls/hr IV LUCIE PRN PRN Reason: Hypotension Losartan Potassium (Cozaar) 100 mg PO QHS [facility] Sevelamer Carbonate (Renvela) 2,400 mg PO TIDWM [facility] Spironolactone (Aldactone) 25 mg PO QDAY [facility] Last Admin: 10/02/20 10:22 Dose: 25 mg Documented by: Review of Systems Constitutional: no weight loss, no weight gain, no fever, no chills, no sweats, no night sweats Cardiovascular: no chest pain, no orthopnea, no palpitations, no edema, no syncope, no lightheadedness, no shortness of breath Respiratory: no cough, no cough with sputum, no excessive sputum, no hemoptysis, no shortness of breath, no dyspnea on exertion Gastrointestinal: no abdominal pain, no nausea, no vomiting, no diarrhea, no change in bowel habits, no hematemesis, no coffee ground emesis Neurological: no transient paralysis, no paralysis, no parathesias, no seizures, no syncope, no tremors, no ataxia, no lack of coordination Physical Examination Vital signs: Vital Signs Pulse Resp Pulse Ox 88 27 H 96 10/01/20 08:45 10/01/20 08:45 10/01/20 08:45 Vitals reviewed General appearance: no acute distress, alert Eyes: non-icteric ENT: oropharynx moist Neck: supple, no lymphadenopathy, no JVD Effort: normal Ascultation: Bilateral: clear, diminished breath sounds Cardiovascular: regular rate and rhythm, other (S1,S2) Gastrointestinal: normoactive bowel sounds, soft, non-tender, non-distended Integumentary: normal Extremities: no cyanosis, no edema, pink and warm, pulses normal, other (LUExt AVG) normal mental status, non-focal exam, pupils equal and round, CN II-XII normal, motor strength normal and mood appropriate, affect normal Results - Laboratory Findings CBC and BMP: 10/02/20 10:31 10/02/20 10:31 ABG ABG pH 7.393 pH Units (7.350-7.450) 10/01/20 15:38 ABG pCO2 43.4 mm Hg 10/01/20 15:38 ABG pO2 110.7 mm Hg (80.0-90.0) H 11/27/20 15:38 ABG O2 Saturation 98.0 % (95.0-99.0) 10/01/20 15:38 Abnormal lab findings: Abnormal Labs 10/01/20 10/01/20 10/01/20 09:01 09:01 15:38 WBC 13.5 H Hgb Hct 34.7 L Lymph % (Auto) Lymph # (Auto) Seg Neutrophils % Seg Neuts % (Manual) 93.0 H Lymphocytes % (Manual) 6.0 L Seg Neutrophils # Seg Neutrophils # Man 12.6 H Lymphocytes # (Manual) 0.8 L ABG pO2 110.7 H ABG Hemoglobin 12.4 L Potassium 5.9 H Chloride 94.3 L Carbon Dioxide 18 L BUN 126 H Creatinine 22.1 H 10/01/20 10/02/20 10/02/20 16:20 10:31 10:31 WBC Hgb 11.2 L Hct 33.4 L Lymph % (Auto) 9.5 L Lymph # (Auto) 0.9 L Seg Neutrophils % 83.7 H Seg Neuts % (Manual) Lymphocytes % (Manual) Seg Neutrophils # 7.8 H Seg Neutrophils # Man Lymphocytes # (Manual) ABG pO2 ABG Hemoglobin Potassium Chloride 93.4 L 95.3 L Carbon Dioxide BUN 65 H 79 H Creatinine 13.3 H - Diagnostic Findings Chest x-ray: report reviewed Assessment and Plan (1) Acute hypoxemic respiratory failure Current Visit: Yes Status: Acute Plan to address problem: Wean off supplemental oxygen for O2 sats>90% -Probably pulmonary edema from missed HD sessions -Need for medical compliance and adherence to HD discussed (2) End stage renal disease Current Visit: Yes Status: Acute Plan to address problem: -HD today. Discussed with Dr. Restrepo, nephrology. - (3) Hypertensive emergency Current Visit: Yes Status: Acute Plan to address problem: Blood pressure control, stop Cardene infusion -Administer oral chronic antihypertensives -HD for this afternoon (4) Systemic inflammatory response syndrome Current Visit: Yes Status: Acute Plan to address problem: CBC, CMP, chest x-ray, Probable secondary to acute stress reaction Discontinue antibiotics and monitor off antibiotics for now Trend temperature curve and WCC (5) DVT prophylaxis Current Visit: Yes Status: Acute Plan to address problem: SCD to bilateral lower extremities while in bed, prophylactic anticoagulation, renally dosed Discharge planning per renal and primary service
--- NOTE | 2020-10-02 14:41 | Discharge Summary ---
<TANYASORAYA - Last Filed: 10/02/20 14:59> Providers - Providers Date of Admission: 10/01/20 10:50 Date of discharge: 10/02/20 Attending physician: EMILY RAMIREZ MD 10/01/20 10:52 Consult to Physician [CONS] Urgent Comment: Consulting Provider: MELVIN KIM Physician Instructions: Reason For Exam: ESRD needing dialysis 10/01/20 19:55 Consult to Physician [CONS] Routine Comment: Consulting Provider: WESLEY STEVEN Physician Instructions: Reason For Exam: HTN Emergency Primary care physician: SUPPLY REQUIREMENTS OFFICER Hospitalization Condition: Stable Hospital course: Patient is a 35-year-old F [place] male with past medical history of hypertension end-stage renal disease who missed dialysis due to the holiday schedule. Patient's last dialysis was 4 days ago. Patient states over the last 24 hours she has developed shortness of breath nausea. Patient states that is very uncomfortable with his breathing. He denies any fevers chills body aches or diarrhea at this time. - Patient Problems (1) Acute hypoxemic respiratory failure-has resolved Likely 2/2 to fluid overlaod due to missed dialysis Has resolved -patient is now on rm air (2) End stage renal disease Current Visit: Yes Status: Acute Plan to address problem: HD per renal recommendation advised to avoid nephrotoxic agent. (3) Hypertensive emergency-stable now Started home bp med-his blood pressure normal Discontinued Cardene drip, urine drug screen positive for amphetamines and marijuana Discussed illicit drug use cessation (4) Pulmonary edema-has improved with HD Most likely 2/2 fluid overload Hemodialysis per renal Patient seen on room air-he said he is feeling better Discussed discharge plan with attending- Paste Up Worker cleared patient with discharge post dialysis today Disposition: DC-01 TO HOME OR SELFCARE - Discharge Diagnoses (1) Hypertension Status: Acute (2) End stage renal disease Status: Acute Core Measure Documentation - Palliative Care Palliative Care/ Comfort Measures: Not Applicable - Core Measures Any of the following diagnoses?: none Exam - Constitutional Vitals: Temp Pulse Resp BP Pulse Ox 98.8 F 80 18 160/79 96 10/02/20 14:00 10/02/20 14:30 10/02/20 14:00 10/02/20 14:30 10/02/20 14:00 General appearance: Present: no acute distress - EENT Eyes: Present: PERRL ENT: hearing intact, clear oral mucosa - Neck Neck: Present: supple, normal ROM - Respiratory Respiratory effort: normal Respiratory: bilateral: CTA - Cardiovascular Heart Sounds: Present: S1 & S2. Absent: rub, click - Extremities Extremities: pulses symmetrical, No edema Peripheral Pulses: within normal limits - Abdominal General gastrointestinal: Present: soft, non-tender, non-distended, normal bowel sounds Male genitourinary: Present: normal - Integumentary Integumentary: Present: clear, warm, dry - Musculoskeletal Musculoskeletal: gait normal, strength equal bilaterally - Psychiatric Psychiatric: appropriate mood/affect, intact judgment & insight, cooperative - Neurologic Neurologic: CNII-XII intact, moves all extremities Plan Diet: low fat, low cholesterol, renal Special Instructions: restrict fluid intake to, record daily BP diary, smoking cessation Follow up with: PRIMARY CARE, [Primary Care Provider] - 7 Days Prescriptions: Losartan [Cozaar] 100 mg PO QHS 30 Days #30 tablet Spironolactone [Aldactone] 25 mg PO QDAY 30 Days #30 tablet cloNIDine [Catapres] 0.2 mg PO TID 30 Days #90 tablet carvediloL [Coreg] 25 mg PO BID 30 Days #60 tablet Sevelamer Carbonate [Renvela] 2,400 mg PO TIDWM 30 Days #90 tablet <EMILY RAMIREZ - Last Filed: 10/03/20 07:16> Providers - Providers Date of Admission: 10/01/20 10:50 Attending physician: EMILY RAMIREZ MD 10/01/20 10:52 Consult to Physician [CONS] Urgent Comment: Consulting Provider: MELVIN KIM Physician Instructions: Reason For Exam: ESRD needing dialysis 10/01/20 19:55 Consult to Physician [CONS] Routine Comment: Consulting Provider: WESLEY STEVEN Physician Instructions: Reason For Exam: HTN Emergency Primary care physician: SUPPLY REQUIREMENTS OFFICER Hospitalization Reason for admission: HYPERTENSIVE EMERGENCY Hospital course: I saw and evaluated the patient. I agree with the findings and the plan of care as documented in the Nurse Practitioner's~note, with the following corrections and additions. extensively counselled patient for 15 mins on Drug abuse and compliance. Time spent for discharge: 35 MINS Exam - Constitutional Vitals: Temp Pulse Resp BP Pulse Ox 98.2 F 86 18 169/85 97 10/02/20 18:15 10/02/20 17:00 10/02/20 16:30 10/02/20 17:00 10/02/20 17:00
[2020-10-02 19:06] VITALS: BP 169/85
[2020-10-02] MEDS ORDERED: LOSARTAN 50 MG TAB PO SCH (22:00)
[2020-10-03] MEDS ORDERED: SEVELAMER CARBONATE 800 MG TAB PO SCH (12:00)
== END 2020-10-02 17:45 | disposition home or self-care (01) | DRG 640 ==
LOC: ED 08:32 → IMCU 10:50 → OBSVTOIN 10:50 → IMCU 17:23 → CC1 20:01
PROVIDERS: ADMIT Internal Medicine; ATTEND Internal Medicine
PROC: 4A033R1 Measurement of Arterial Saturation, Peripheral, Percutaneous Approach (ICD-10-PCS; principal; 2020-10-01)
PROC: 5A1935Z Respiratory Ventilation, Less than 24 Consecutive Hours (ICD-10-PCS; 2020-10-01)
PROC: 5A1D70Z Performance of Urinary Filtration, Intermittent, Less than 6 Hours Per Day (ICD-10-PCS; 2020-10-01)
PROC: 5A09357 Assistance with Respiratory Ventilation, Less than 24 Consecutive Hours, Continuous Positive Airway Pressure (ICD-10-PCS; 2020-10-01)
PROC: 5A1D70Z Performance of Urinary Filtration, Intermittent, Less than 6 Hours Per Day (ICD-10-PCS; 2020-10-02)
DX: E87.70 Fluid overload, unspecified (principal); J96.01 Acute respiratory failure with hypoxia; N18.6 End stage renal disease; I12.0 Hypertensive chronic kidney disease with stage 5 chronic kidney disease or end stage renal disease; I16.1 Hypertensive emergency; R65.10 Systemic inflammatory response syndrome (SIRS) of non-infectious origin without acute organ dysfunction; N25.81 Secondary hyperparathyroidism of renal origin; D63.8 Anemia in other chronic diseases classified elsewhere; E83.9 Disorder of mineral metabolism, unspecified
CPT/HCPCS: 36415; 36600; 71045; 80048; 80074; 80307; 82803; 85007; 85025; 94644; 94660; 94760; 96365; 96367; 96375; G0378; J1170; J1644; J1815; J1940; J1956; J2060; J2405; J7050